=== PATIENT | male | born 2000 | race Caucasian/White ===

== ENCOUNTER 2024-02-07 14:00 | Outpatient (CLI) | payer OTHER ==
--- NOTE | 2024-02-07 16:24 | XRAY Report ---
PROCEDURE: Chest 2V INDICATIONS: COUGH TECHNIQUE: 2 views of the chest were acquired. COMPARISON: None. FINDINGS: Surgical changes and devices: None. Lungs and pleura: No dense consolidation or pleural effusion Mediastinum: Normal heart size Bones and chest wall: No suspicious bony lesions. Overlying soft tissues appear unremarkable. IMPRESSION: No acute radiographic abnormality. Reviewed by: Ganga Cifuentes MD on 02/07/2024 4:23 PM PDT Approved by: Ganga Cifuentes MD on 02/07/2024 4:23 PM PDT Station ID: [id number]
== END 2024-02-07 14:15 | disposition home or self-care (01) ==
LOC: DI.N 14:00
PROVIDERS: ATTEND Family Medicine
DX: R05.9 Cough, unspecified (principal)